=== PATIENT | female | born 1980 | race Two or more races ===

== ENCOUNTER 2023-10-28 06:24 | Emergency (ER) | payer SELFPAY ==
[~2023-10-28] VITALS: Ht 152.4 cm; Wt 71.3 kg
[2023-10-28 07:12] VITALS: BP 102/78; PULSE 109; RESP 18; TEMP 98.2; O2SAT 94
[2023-10-28] MEDS ORDERED: KETOROLAC TROMETH 60MG/2ML VIAL IM ONE (07:45)
[2023-10-28 08:11] LABS: Basophils # (auto) 0 10 ^3/uL (0-0.2); Basophils % (auto) 0.5 % (0.0-2.0); Eosinophils # (auto) 0 10 ^3/uL (0-0.8); Eosinophils % (auto) 0.2 % (0.0-7.0); Hematocrit 41.1 % (36.0-46.0); Hemoglobin 13.9 g/dL (12.2-16.2); Lymphocytes % (auto) 23.6 % (10.0-50.0); Mean Corpuscular Hemoglobin 28.7 pg (28.0-32.0); Mean Corpuscular Hgb Conc. 33.8 g/dL (32.0-36.0); Monocytes # (auto) 0.2 10 ^3/uL (0-1.3); Monocytes % (auto) 2.8 % (0.0-12.0); Neutrophils # (auto) 6.2 10 ^3/uL (1.6-8.6); Neutrophils % (auto) 72.9 % (37.0-80.0); Nucleated Red Blood Cells % 0.1 %; Red Blood Cells 4.83 10^6/uL (4.0-5.20); Red Cell Distribution Width 13.6 % (11.8-14.3); White Blood Cell 8.4 10^3/uL (4.4-10.8)
[2023-10-28] MEDS: SODIUM CHLORIDE 0.9% 1,000 ML IV ONE (08:14)
[2023-10-28 08:17] LABS: COVID19 ANTIGEN SOFIA FIA NEGATIVE (NEGATIVE); Rapid Influenza A Negative (Negative); Rapid Influenza B Negative (Negative)
[2023-10-28 08:18] LABS: Chloride 100 mmol/L (98-107); Potassium 3.1 mmol/L (3.5-5.1); Sodium 135 mmol/L (136-145)
[2023-10-28 08:20] LABS: Anion Gap 4 (5-15); Calcium 9.2 mg/dL (8.5-10.1); Carbon Dioxide 31 mmol/L (20-30)
[2023-10-28] MEDS: KETOROLAC TROMETH 30 MG/ML 1ML VIAL IV ONE (08:22)
[2023-10-28 08:25] LABS: BUN/Creatinine Ratio 11.7 (10.0-20.0); Blood Urea Nitrogen 7 mg/dL (9-23); Glucose 120 mg/dL (74-106)
[2023-10-28] MEDS: POTASSIUM CHL 20 Meq TABLET PO ONE (08:48)
[2023-10-28] MEDS ORDERED: POTA10TA51 PO (09:03)
== END 2023-10-28 09:18 | disposition home or self-care (01) ==
LOC: ER 06:24
DX: E87.6 Hypokalemia (principal); M79.10 Myalgia, unspecified site; Z20.822 Contact with and (suspected) exposure to COVID-19
CPT/HCPCS: 36415; 80048; 85025; 87426; 87804; 96361; 96374; 99283; J1885; J7030